=== PATIENT | female | born 1950 | race Caucasian/White ===

== ENCOUNTER 2020-11-11 13:02 | Outpatient (CLI) | payer MEDICARE, OTHER ==
[2020-11-12 01:18] LABS: SARS-CoV-2 PCR by NAA Not Detected (NotDetected)
== END 2020-11-11 13:03 | disposition home or self-care (01) ==
LOC: CSHLAB 13:02
PROVIDERS: ATTEND Family Medicine
DX: Z20.822 Contact with and (suspected) exposure to COVID-19 (principal)
CPT/HCPCS: 87635; U0003; U0005

== ENCOUNTER 2020-11-16 08:08 | Outpatient (CLI) | payer MEDICARE, OTHER | END 2020-11-16 08:09 | disposition home or self-care (01) | LOC: CSHRAD 08:08 | PROVIDERS: ATTEND Family Medicine | DX: R13.10 Dysphagia, unspecified (principal); K44.9 Diaphragmatic hernia without obstruction or gangrene; Z98.1 Arthrodesis status; K22.9 Disease of esophagus, unspecified | CPT/HCPCS: 74220 ==

== ENCOUNTER 2022-06-11 12:52 | Outpatient (CLI) | payer MEDICARE, OTHER | END 2022-06-11 12:53 | disposition home or self-care (01) | LOC: CSHMAMMO 12:52 | PROVIDERS: ATTEND Family Medicine | DX: Z12.31 Encounter for screening mammogram for malignant neoplasm of breast (principal); Z91.89 Other specified personal risk factors, not elsewhere classified; Z85.820 Personal history of malignant melanoma of skin | CPT/HCPCS: 77063; 77067 ==

== ENCOUNTER 2023-10-08 12:53 | Outpatient (CLI) | payer MEDICARE, OTHER | END 2023-10-08 12:54 | disposition home or self-care (01) | LOC: CSHMAMMO 12:53 | PROVIDERS: ATTEND Family Medicine | DX: Z12.31 Encounter for screening mammogram for malignant neoplasm of breast (principal); Z91.89 Other specified personal risk factors, not elsewhere classified; Z85.820 Personal history of malignant melanoma of skin | CPT/HCPCS: 77063; 77067 ==